=== PATIENT | female | born 1955 | race Caucasian/White ===

== ENCOUNTER 2020-07-11 05:56 | Inpatient (IN) ==
[2020-07-11] MEDS ORDERED: MAGNESIUM SULF RIDER 2 GM in PREMIX 1 EACH IV PRN (06:00)
[2020-07-11] MEDS ORDERED: ASPIRIN 325 MG TABLET PO ONE (06:00)
[2020-07-11] MEDS ORDERED: POTASSIUM CHLORIDE RIDER 10 MEQ in PREMIX 1 EACH IV PRN (06:00)
[2020-07-11] MEDS ORDERED: DIAZEPAM 5 MG TABLET PO ONE (06:00)
[2020-07-11] MEDS ORDERED: diphenhydrAMINE CAP 25 MG CAPSULE PO ONE (06:00)
[2020-07-11] MEDS ORDERED: ASPIRIN 325 MG TABLET ONE (06:46)
[2020-07-11] MEDS ORDERED: DIAZEPAM 5 MG TABLET ONE (06:46)
[2020-07-11] MEDS ORDERED: diphenhydrAMINE CAP 25 MG CAPSULE ONE (06:46)
[2020-07-11] MEDS: SODIUM CHLORIDE 0.9% 1,000 ML IV SCH ×2 (06:54→17:59)
[2020-07-11] MEDS ORDERED: LIDOCAINE 1% 20 ML VIAL ONE (07:53)
[2020-07-11] MEDS ORDERED: NITROGLYCERIN DRIP 50 MG/250 ML BOTTLE IV ONE (07:53)
[2020-07-11] MEDS ORDERED: HEPARIN/NACL 0.9% 2 UNITS/ML 1,000 ML IV ONE (07:53)
[2020-07-11] MEDS ORDERED: HEPARIN 5,000 UNIT/1 ML VIAL ONE ×2 (07:53→08:29)
[2020-07-11] MEDS ORDERED: VERAPAMIL 5 MG/2 ML VIAL ONE (07:53)
[2020-07-11] MEDS ORDERED: MIDAZOLAM 2 MG/2 ML VIAL ONE ×2 (07:54→08:14)
[2020-07-11] MEDS ORDERED: fentaNYL 100 MCG/2 ML VIAL ONE ×2 (07:54→09:17)
[2020-07-11] MEDS ORDERED: HEPARIN/NACL 0.9% 2 UNITS/ML 500 ML IV ONE (07:55)
[2020-07-11] MEDS ORDERED: CLOPIDOGREL 300 MG TABLET ONE (08:33)
[2020-07-11] MEDS ORDERED: EPTIFIBATIDE 75 MG/100 ML BOTTLE IV ONE (09:24)
[2020-07-11] MEDS ORDERED: SODIUM CHLORIDE 0.9% 1,000 ML IV SCH (10:00)
[2020-07-11] MEDS: carvediloL 12.5 MG TABLET PO SCH (20:11)
[2020-07-11] MEDS: clonazePAM 0.5 MG TABLET PO SCH (20:11)
[2020-07-11] MEDS: CITALOPRAM 40 MG TABLET PO SCH (20:11)
[2020-07-11] MEDS: busPIRone 15 MG TABLET PO SCH (20:11)
[2020-07-12] MEDS: ENOXAPARIN 40 MG/0.4 ML SYRINGE SUBCUT SCH (04:50)
[2020-07-12 05:33] LABS: Basophils # 0.1 10*3/uL (0.0-0.2); Basophils % 0.6 % (0.0-0.8); Eosinophils # 0.1 10*3/uL (0.0-0.87); Eosinophils % 0.7 % (0.00-10.9); Hematocrit 35.5 VOL% (35.7-47.0); Hemoglobin 11.8 GM/DL (12.0-16.0); Immature Granulocytes % 0.5 %; Immature Granulocytes Absolute 0.05 #; Lymphocytes # 1.7 10*3/uL (1.4-4.0); Lymphocytes % 16.6 % (21.3-54.2); Mean Corpuscular HGB Conc 33.2 GM/DL (32-36); Mean Corpuscular Volume 101.4 FL (87-102); Mean Platelet Volume 10.5 FL (9.6-12.0); Monocytes % 9.9 % (1.7-12.7); Neutrophils % 71.7 % (38.7-73.9); Platelet Count 234 T/CUMM (130-400); Red Cell Distribution Width 13.4 % (9.3-17.3); White Blood Count 10.2 T/CUMM (4-12)
[2020-07-12 05:47] LABS: Calcium 8.2 MG/DL (8.5-10.1)
[2020-07-12] MEDS ORDERED: ISOSORBIDE MONONITRATE 30 MG TABLET PO SCH (09:00)
[2020-07-12] MEDS ORDERED: amLODIPine 10 MG TABLET PO SCH (09:00)
[2020-07-12] MEDS: ASPIRIN CHEW 81 MG TABLET PO SCH (09:02)
[2020-07-12] MEDS: busPIRone 15 MG TABLET PO SCH ×2 (09:02→21:31)
[2020-07-12] MEDS: LOSARTAN 50 MG TABLET PO SCH (09:02)
[2020-07-12] MEDS: PANTOPRAZOLE 40 MG TABLET PO SCH (09:02)
[2020-07-12] MEDS: clonazePAM 0.5 MG TABLET PO SCH ×2 (09:02→21:31)
[2020-07-12] MEDS: carvediloL 12.5 MG TABLET PO SCH (09:02)
[2020-07-12 09:05] LABS: Risk Ratio 1.78; VLDL CHOLESTEROL 11.2 MG/DL
[2020-07-12 09:37] LABS: CKMB % 5.1 %
[2020-07-12 09:38] LABS: Troponin I 0.958 NG/ML (0.00-0.045)
[2020-07-12] MEDS: NICOTINE 21 MG/24 HR PATCH TRANSDERM SCH (11:22)
[2020-07-12] MEDS ORDERED: SODIUM CHLORIDE 0.9% 500 ML IV ONE (12:06)
[2020-07-12] MEDS ORDERED: carvediloL 6.25 MG TABLET PO SCH (12:15)
[2020-07-12] MEDS ORDERED: POTASSIUM CHLORIDE RIDER 10 MEQ in PREMIX 1 EACH IV PRN (14:17)
[2020-07-12] MEDS ORDERED: MAGNESIUM SULF RIDER 2 GM in PREMIX 1 EACH IV PRN (14:17)
[2020-07-12] MEDS: carvediloL 6.25 MG TABLET PO SCH (16:21)
[2020-07-12] MEDS ORDERED: MELATONIN 3 MG TABLET PO ONE (21:00)
[2020-07-12] MEDS ORDERED: diphenhydrAMINE CAP 50 MG CAPSULE PO ONE (21:00)
[2020-07-12] MEDS: CITALOPRAM 40 MG TABLET PO SCH (21:31)
[2020-07-12] MEDS: ROSUVASTATIN 20 MG TABLET PO SCH (21:33)
[2020-07-13] MEDS: ENOXAPARIN 40 MG/0.4 ML SYRINGE SUBCUT SCH (04:14)
[2020-07-13 06:24] LABS: Calcium 8.5 MG/DL (8.5-10.1)
[2020-07-13] MEDS: carvediloL 6.25 MG TABLET PO SCH ×2 (09:09→18:14)
[2020-07-13] MEDS: ASPIRIN CHEW 81 MG TABLET PO SCH (09:09)
[2020-07-13] MEDS: NICOTINE 21 MG/24 HR PATCH TRANSDERM SCH (09:10)
[2020-07-13] MEDS ORDERED: HEPARIN/NACL 0.9% 2 UNITS/ML 1,000 ML IV ONE (13:09)
[2020-07-13] MEDS ORDERED: LIDOCAINE 1% 20 ML VIAL ONE (13:09)
[2020-07-13] MEDS ORDERED: HEPARIN 5,000 UNIT/1 ML VIAL ONE ×3 (13:29→14:30)
[2020-07-13] MEDS ORDERED: MIDAZOLAM 2 MG/2 ML VIAL ONE (13:46)
[2020-07-13] MEDS ORDERED: fentaNYL 100 MCG/2 ML VIAL ONE (13:46)
[2020-07-13] MEDS ORDERED: NITROGLYCERIN DRIP 50 MG/250 ML BOTTLE IV ONE (13:55)
[2020-07-13] MEDS ORDERED: HYDROmorphone 2 MG/1 ML VIAL ONE (14:38)
[2020-07-13] MEDS ORDERED: HEPARIN/NACL 0.9% 2 UNITS/ML 500 ML IV ONE (15:14)
[2020-07-13] MEDS ORDERED: CLOPIDOGREL 75 MG TABLET ONE (15:38)
[2020-07-13] MEDS ORDERED: SODIUM CHLORIDE 0.9% 1,000 ML IV SCH (16:00)
[2020-07-13] MEDS: busPIRone 15 MG TABLET PO SCH ×2 (16:02→21:30)
[2020-07-13] MEDS: clonazePAM 0.5 MG TABLET PO SCH ×2 (16:03→21:30)
[2020-07-13] MEDS: PANTOPRAZOLE 40 MG TABLET PO SCH (17:54)
[2020-07-13] MEDS: CITALOPRAM 40 MG TABLET PO SCH (21:30)
[2020-07-13] MEDS: ROSUVASTATIN 20 MG TABLET PO SCH (21:31)
[2020-07-14] MEDS: ENOXAPARIN 40 MG/0.4 ML SYRINGE SUBCUT SCH (05:04)
[2020-07-14 08:49] VITALS: BP 160/70
[2020-07-14] MEDS ORDERED: CLOPIDOGREL 75 MG TABLET PO SCH (09:00)
[2020-07-14 09:03] LABS: Basophils # 0.1 10*3/uL (0.0-0.2); Basophils % 0.5 % (0.0-0.8); Eosinophils # 0.2 10*3/uL (0.0-0.87); Eosinophils % 1.6 % (0.00-10.9); Hematocrit 34.1 VOL% (35.7-47.0); Hemoglobin 11.4 GM/DL (12.0-16.0); Immature Granulocytes % 0.4 %; Immature Granulocytes Absolute 0.04 #; Lymphocytes # 1.8 10*3/uL (1.4-4.0); Lymphocytes % 16.5 % (21.3-54.2); Mean Corpuscular HGB Conc 33.4 GM/DL (32-36); Mean Corpuscular Volume 101.2 FL (87-102); Mean Platelet Volume 10.1 FL (9.6-12.0); Monocytes % 8.7 % (1.7-12.7); Neutrophils % 72.3 % (38.7-73.9); Platelet Count 246 T/CUMM (130-400); Red Blood Count 3.37 MC/CUMM (3.8-5.5)
[2020-07-14 09:26] LABS: CKMB % 5.9 %; Calcium 8.6 MG/DL (8.5-10.1); Osmolality,Calculated 270.8 MOS/KG (273-304)
[2020-07-14 09:28] LABS: Troponin I 1.86 NG/ML (0.00-0.045)
[2020-07-14] MEDS: carvediloL 6.25 MG TABLET PO SCH (09:28)
[2020-07-14] MEDS: busPIRone 15 MG TABLET PO SCH (09:28)
[2020-07-14] MEDS: clonazePAM 0.5 MG TABLET PO SCH (09:28)
[2020-07-14] MEDS: ASPIRIN CHEW 81 MG TABLET PO SCH (09:28)
[2020-07-14] MEDS: PANTOPRAZOLE 40 MG TABLET PO SCH (09:28)
[2020-07-14] MEDS: LOSARTAN 50 MG TABLET PO SCH (09:28)
[2020-07-14] MEDS: NICOTINE 21 MG/24 HR PATCH TRANSDERM SCH (09:29)
== END 2020-07-14 10:55 | disposition home or self-care (01) | DRG 247 ==
LOC: N.CL 05:56 → N.SDSINP 09:45 → N.TELES 14:45
PROVIDERS: ADMIT Internal Medicine Cardiovascular Disease; ATTEND Internal Medicine Cardiovascular Disease
PROC: CLCCHCL (ICD-10-PCS; 2020-07-11 08:15)

== ENCOUNTER 2022-08-14 05:47 | Inpatient (IN) ==
[2022-08-08 12:22] LABS: Bilirubin,Urine Negative (Negative); Blood, Urine Negative (Negative); Glucose,Urine (UA) Negative (Negative); Hyaline Casts,Urine 9 /LPF (0-3); Ketones,Urine Negative (Negative); Mucus,Urine Occasional /LPF (Occasional); Nitrite,Urine Negative (Negative); Protein,Urine Negative (Negative); RBC,Urine <1 /HPF (0-4); Squamous Epithelial Cell,Urine Occasional /HPF (0-10); Urine Appearance Clear (Clear); Urine Color Yellow (Yellow); Urine Urobilinogen 0.2 eU/dL (<2.0); Urine pH 5.5 (4.5-8.0)
[2022-08-08 12:49] LABS: Basophils # 0.1 10*3/uL (0.0-0.2); Basophils % 0.7 % (0.0-0.8); Eosinophils # 0.1 10*3/uL (0.0-0.87); Hematocrit 38.1 VOL% (35.7-47.0); Hemoglobin 12.6 GM/DL (12.0-16.0); Immature Granulocytes % 0.4 %; Immature Granulocytes Absolute 0.03 #; Lymphocytes # 2.2 10*3/uL (1.4-4.0); Lymphocytes % 26.5 % (21.3-54.2); Mean Corpuscular HGB Conc 33.1 GM/DL (32-36); Mean Corpuscular Volume 98.4 FL (87-102); Mean Platelet Volume 9.8 FL (9.6-12.0); Monocytes # 0.7 10*3/uL (0.11-0.8); Monocytes % 8.1 % (1.7-12.7); Neutrophils % 63.3 % (38.7-73.9); Platelet Count 395 T/CUMM (130-400); Red Blood Count 3.87 MC/CUMM (3.8-5.5); Red Cell Distribution Width 13.2 % (9.3-17.3); White Blood Count 8.2 T/CUMM (4-12)
[2022-08-08 12:59] LABS: INR 0.9; PT Patient Result 10.5 SECS (10.1-12.1); Partial Thromboplastin Time 30.6 SECS (23.7-32.9)
[2022-08-08 13:16] LABS: Albumin 3.7 G/DL (3.4-5.0); Bilirubin,Total 0.4 MG/DL (0.20-1.00); Calcium 8.9 MG/DL (8.5-10.1); Osmolality,Calculated 257.8 MOS/KG (273-304); Potassium 4.7 MMOL/L (3.5-5.1); Total Protein 6.6 G/DL (6.4-8.2)
[2022-08-14] MEDS ORDERED: propofoL 200 MG/20 ML VIAL IV ONE (05:58)
[2022-08-14] MEDS ORDERED: LIDOCAINE 2% 5 ML VIAL ONE (05:58)
[2022-08-14] MEDS ORDERED: VANCOMYCIN INJ 1,000 MG in SODIUM CHLORIDE 0.9% 250 ML IV ONE (06:00)
[2022-08-14] MEDS ORDERED: MIDAZOLAM 2 MG/2 ML VIAL ONE (06:30)
[2022-08-14] MEDS: LACTATED RINGERS 1,000 ML IV SCH ×2 (06:30→09:47)
[2022-08-14] MEDS ORDERED: fentaNYL 100 MCG/2 ML VIAL ONE (06:30)
[2022-08-14] MEDS ORDERED: DEXAMETHASONE 4 MG/1 ML VIAL ONE (06:34)
[2022-08-14] MEDS ORDERED: LIDOCAINE 1% 5 ML VIAL ONE (06:34)
[2022-08-14] MEDS ORDERED: ROPIVACAINE 0.5% 30 ML VIAL ONE (06:35)
[2022-08-14] MEDS ORDERED: ROCURONIUM 50 MG/5 ML VIAL IV ONE (06:37)
[2022-08-14] MEDS ORDERED: ONDANSETRON 4 MG/2 ML VIAL ONE (06:37)
[2022-08-14] MEDS ORDERED: MAGNESIUM HYDROXIDE SUSP 30 ML UDCUP PO PRN (07:08)
[2022-08-14] MEDS ORDERED: diphenhydrAMINE CAP 25 MG CAPSULE PO PRN (07:08)
[2022-08-14] MEDS ORDERED: PROMETHAZINE 25 MG/1 ML VIAL IM PRN (07:08)
[2022-08-14] MEDS ORDERED: ONDANSETRON 4 MG/2 ML VIAL IV PRN ×2 (07:08→09:15)
[2022-08-14] MEDS ORDERED: BISACODYL 10 MG SUPP RECTAL PRN (07:08)
[2022-08-14] MEDS ORDERED: LACTULOSE 20 GM/30 ML UDCUP PO PRN (07:08)
[2022-08-14] MEDS ORDERED: HYDROmorphone 1 MG/1 ML SYRINGE IV PRN ×2 (07:08→08:00)
[2022-08-14] MEDS ORDERED: ALBUTEROL 2.5 MG/3 ML NEB RESP TX ONE (07:27)
[2022-08-14] MEDS ORDERED: ePHEDrine 50 MG/ML VIAL ONE (07:40)
[2022-08-14] MEDS ORDERED: PHENYLEPHRINE 1 MG/10 ML SYRINGE IV ONE (07:47)
[2022-08-14] MEDS ORDERED: HYDROmorphone 1 MG/1 ML SYRINGE ONE (08:03)
[2022-08-14] MEDS ORDERED: ACETAMINOPHEN INJ 1,000 MG/100 ML VIAL IV ONE (08:05)
[2022-08-14] MEDS ORDERED: SEVOFLURANE 1 UNIT/15 MINUTE INH ONE ×8 (08:10→08:44)
[2022-08-14] MEDS ORDERED: NEOSTIGMINE 10 MG/10 ML VIAL ONE (08:30)
[2022-08-14] MEDS ORDERED: GLYCOPYRROLATE 0.4 MG/2 ML VIAL ONE ×2 (08:44→08:45)
[2022-08-14] MEDS ORDERED: MONTELUKAST 10 MG TABLET PO SCH (09:00)
[2022-08-14] MEDS ORDERED: IRBESARTAN 300 MG PO SCH (09:00)
[2022-08-14] MEDS ORDERED: SODIUM CHLORIDE 1 GM TABLET PO SCH (09:00)
[2022-08-14] MEDS ORDERED: LANSOPRAZOLE 15 MG PO SCH (09:00)
[2022-08-14] MEDS: HYDROmorphone 1 MG/1 ML SYRINGE IV PRN ×4 (09:16→20:50)
[2022-08-14 09:19] LABS: Mucus,Urine Occasional /LPF (Occasional); RBC,Urine <1 /HPF (0-4); Squamous Epithelial Cell,Urine Occasional /HPF (0-10); Urine Color Yellow (Yellow)
[2022-08-14 09:20] LABS: Bilirubin,Urine Negative (Negative); Blood, Urine Negative (Negative); Glucose,Urine (UA) Negative (Negative); Ketones,Urine Negative (Negative); Nitrite,Urine Negative (Negative); Protein,Urine Negative (Negative); Urine Appearance Clear (Clear); Urine Urobilinogen 0.2 eU/dL (<2.0)
[2022-08-14] MEDS ORDERED: MEPERIDINE 25 MG/1 ML VIAL ONE (09:27)
[2022-08-14] MEDS ORDERED: MEPERIDINE 25 MG/1 ML VIAL IV PRN (09:29)
[2022-08-14] MEDS: ASPIRIN EC 81 MG TABLET PO SCH (12:50)
[2022-08-14] MEDS: CLOPIDOGREL 75 MG TABLET PO SCH (12:51)
[2022-08-14] MEDS: DOCUSATE SODIUM 100 MG CAPSULE PO SCH ×2 (12:51→20:48)
[2022-08-14] MEDS: GABAPENTIN 300 MG CAPSULE PO SCH ×2 (15:16→20:48)
[2022-08-14] MEDS: ceFAZolin 2,000 MG/50 ML DUPLEX IV SCH ×2 (15:16→21:00)
[2022-08-14] MEDS: carvediloL 6.25 MG TABLET PO SCH (17:53)
[2022-08-14] MEDS: ROSUVASTATIN 20 MG TABLET PO SCH (20:48)
[2022-08-14] MEDS: FONDAPARINUX 2.5 MG/0.5 ML SYRINGE SUBCUT SCH (20:48)
[2022-08-14] MEDS: PANTOPRAZOLE 40 MG TABLET PO SCH (20:48)
[2022-08-14] MEDS: TEMAZEPAM 7.5 MG CAPSULE PO PRN (20:55)
[2022-08-14] MEDS ORDERED: traZODone 50 MG TABLET PO SCH (21:00)
[2022-08-15] MEDS: HYDROmorphone 1 MG/1 ML SYRINGE IV PRN (01:15)
[2022-08-15 05:41] LABS: Basophils % 0.2 % (0.0-0.8); Hemoglobin 10.4 GM/DL (12.0-16.0); Immature Granulocytes % 0.4 %; Immature Granulocytes Absolute 0.05 #; Lymphocytes # 1.6 10*3/uL (1.4-4.0); Lymphocytes % 13.5 % (21.3-54.2); Mean Corpuscular HGB Conc 33.5 GM/DL (32-36); Mean Corpuscular Volume 100.3 FL (87-102); Mean Platelet Volume 9.8 FL (9.6-12.0); Monocytes # 1.1 10*3/uL (0.11-0.8); Monocytes % 9.7 % (1.7-12.7); Neutrophils % 76.2 % (38.7-73.9); Platelet Count 373 T/CUMM (130-400); Red Blood Count 3.09 MC/CUMM (3.8-5.5); Red Cell Distribution Width 13.4 % (9.3-17.3); White Blood Count 11.7 T/CUMM (4-12)
[2022-08-15 06:02] LABS: Calcium 9.1 MG/DL (8.5-10.1); Osmolality,Calculated 265.4 MOS/KG (273-304); Potassium 4.8 MMOL/L (3.5-5.1)
[2022-08-15] MEDS ORDERED: MEPERIDINE 25 MG/1 ML VIAL IM PRN ×2 (08:35→08:49)
[2022-08-15] MEDS ORDERED: oxyCODONE/ACETAMINOPHEN 5-325 MG TABLET PO PRN (08:36)
[2022-08-15] MEDS: VENLAFAXINE XR 75 MG CAPSULE PO SCH (09:10)
[2022-08-15] MEDS: carvediloL 6.25 MG TABLET PO SCH ×2 (09:10→16:26)
[2022-08-15] MEDS: MAGNESIUM OXIDE 400 MG TABLET PO SCH (09:10)
[2022-08-15] MEDS: ASPIRIN EC 81 MG TABLET PO SCH (09:10)
[2022-08-15] MEDS: GABAPENTIN 300 MG CAPSULE PO SCH ×3 (09:11→20:20)
[2022-08-15] MEDS: CLOPIDOGREL 75 MG TABLET PO SCH (09:11)
[2022-08-15] MEDS: DOCUSATE SODIUM 100 MG CAPSULE PO SCH ×2 (09:11→20:21)
[2022-08-15] MEDS: oxyCODONE/ACETAMINOPHEN 5-325 MG TABLET PO PRN ×2 (12:06→20:21)
[2022-08-15] MEDS: PANTOPRAZOLE 40 MG TABLET PO SCH (20:20)
[2022-08-15] MEDS: ROSUVASTATIN 20 MG TABLET PO SCH (20:21)
[2022-08-15] MEDS: TEMAZEPAM 7.5 MG CAPSULE PO PRN (20:21)
[2022-08-15] MEDS: FONDAPARINUX 2.5 MG/0.5 ML SYRINGE SUBCUT SCH (20:21)
[2022-08-16] MEDS: oxyCODONE/ACETAMINOPHEN 5-325 MG TABLET PO PRN (05:56)
[2022-08-16] MEDS: ASPIRIN EC 81 MG TABLET PO SCH (09:45)
[2022-08-16] MEDS: GABAPENTIN 300 MG CAPSULE PO SCH (09:46)
[2022-08-16] MEDS: carvediloL 6.25 MG TABLET PO SCH (09:46)
[2022-08-16] MEDS: MAGNESIUM OXIDE 400 MG TABLET PO SCH (09:46)
[2022-08-16] MEDS: DOCUSATE SODIUM 100 MG CAPSULE PO SCH (09:46)
[2022-08-16] MEDS: VENLAFAXINE XR 75 MG CAPSULE PO SCH (09:46)
[2022-08-16] MEDS: CLOPIDOGREL 75 MG TABLET PO SCH (09:46)
[2022-08-16 11:27] VITALS: BP 127/50
[2022-08-19] MEDS ORDERED: ERGOCALCIFEROL 50,000 UNIT CAPSULE PO SCH (09:00)
== END 2022-08-16 14:52 | disposition home health service (06) | DRG 470 ==
LOC: N.SDSINP 05:47 → N.3E 10:10
PROVIDERS: ADMIT Orthopaedic Surgery; ATTEND Orthopaedic Surgery